=== PATIENT | male | born 1980 | race African-American/Black ===

== ENCOUNTER 2017-03-10 13:36 | Inpatient (IN) | payer OTHER ==
[~2017-03-10] VITALS: Ht 175.3 cm; Wt 80.4 kg
[2017-03-10] MEDS ORDERED: TOPA25TA10 PO (13:56)
[2017-03-10] MEDS ORDERED: NEFA200T PO (13:56)
[2017-03-10] MEDS ORDERED: HYDR25T PO (13:56)
[2017-03-10] MEDS ORDERED: AMBI5TAB PO (13:56)
[2017-03-10] MEDS ORDERED: XANA2TAB2 PO (13:56)
[2017-03-10] MEDS ORDERED: ABIL2TAB2 PO (13:56)
[2017-03-10] MEDS ORDERED: ALL10TAB27 PO (13:56)
[2017-03-10] MEDS ORDERED: PAXI10TA2 PO (13:56)
[2017-03-10] MEDS ORDERED: VIAG100T PO (13:56)
[2017-03-10] MEDS ORDERED: TEMA30CA PO (13:56)
[2017-03-10] MEDS ORDERED: WELLTAB38 PO (13:56)
[2017-03-10] MEDS ORDERED: BUPR50TA PO (13:56)
[2017-03-10 14:50] LABS: MEAN CORPUSCULAR HEMOGLOBIN 32.1 pg (27.0-33.0); MEAN CORPUSCULAR HGB CONC 34.6 g/dl (32.0-36.5); MEAN CORPUSCULAR VOLUME 92.8 fl (80.0-96.0); RED CELL DISTRIBUTION WIDTH 13.5 % (11.5-14.5); WHITE BLOOD COUNT 3.9 K/mm3 (4.0-10.0)
[2017-03-10 15:07] LABS: METHADONE URINE NEGATIVE (NEGATIVE)
[2017-03-10 15:18] LABS: ALBUMIN 4.4 GM/DL (3.2-5.2); ALBUMIN/GLOBULIN RATIO 1.52 (1.00-1.93); ALKALINE PHOSPHATASE 53 U/L (45-117); ALT/SGPT 30 U/L (12-78); ANION GAP 7 MEQ/L (8-16); AST/SGOT 31 U/L (15-37); BILIRUBIN,DIRECT 0.3 MG/DL (0.0-0.2); BILIRUBIN,TOTAL 1.3 MG/DL (0.2-1.0); BLOOD UREA NITROGEN 10 MG/DL (7-18); CALCIUM LEVEL 8.7 MG/DL (8.5-10.1); CARBON DIOXIDE LEVEL 31 MEQ/L (21-32); CHLORIDE LEVEL 106 MEQ/L (98-107); CREATININE FOR GFR 1.33 MG/DL (0.70-1.30); GLOMERULAR FILTRATION RATE > 60.0 (>60); GLUCOSE, FASTING 88 MG/DL (70-105); POTASSIUM SERUM 3.9 MEQ/L (3.5-5.1); SODIUM LEVEL 144 MEQ/L (136-145); TOTAL PROTEIN 7.3 GM/DL (6.4-8.2)
[2017-03-10] MEDS ORDERED: ALPR0.5T3 PO (16:45)
[2017-03-10] MEDS ORDERED: ABIL5TAB5 PO (16:45)
[2017-03-10] MEDS ORDERED: BUPR100T3 PO (16:45)
[2017-03-10 18:07] VITALS: BP 133/87
[2017-03-10] MEDS ORDERED: MAALOX 30 ML SUSP *UDC PO PRN (19:45)
[2017-03-10] MEDS ORDERED: MOM 30ML SUSPENSION UDC PO PRN (19:45)
[2017-03-10] MEDS ORDERED: ACETAMINOPHEN TAB 650MG DOSE (2X325MG) PO PRN (19:45)
[2017-03-10] MEDS: traZODone 50 MG TAB PO SCH (20:00)
[2017-03-10] MEDS: clonazePAM 1 MG TAB PO SCH (20:00)
[2017-03-11 06:37] VITALS: BP 139/73
[2017-03-11] MEDS: clonazePAM 1 MG TAB PO SCH ×2 (08:31→20:33)
[2017-03-11] MEDS: TOPIRAMATE (TopAMAX) 25 MG TAB PO SCH (08:31)
[2017-03-11] MEDS ORDERED: PARoxetine 12.5 MG **CR** TAB PO SCH (09:00)
--- NOTE | 2017-03-11 16:49 | HPEPDOC ---
[facility] History & Physical History and Physical DATE OF ADMISSION: Mar 10, 2017 at 15:58 LEGAL STATUS AT ADMISSION: Voluntary status CHIEF COMPLAINT: "my medication is not helping. I feel like crying a lot more than I ever did. I am not comfortable around other people. I feel very anxious. I need a break from life". 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. He has been in the service for nearly 20 years. 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 He hopes to retire soon. Half-Way is set for December 2017. However ever since his daughter left [place] and went to [place] to live with her mother the patient has been more depressed and more troubled by PTSD symptoms. He experiences anxiety, crying, hopelessness, flash backs that last a long time, & panic attacks. His daughter returned in November but his symptoms have not improved. He is prescribed Paxil CR 12.5 mg by [facility] - February. He has a therapist Hansa at [facility]. He says his therapist has suggested he seek a medical discharge and try to retire sooner from the [employer]. Pt states he would like to be considered for that along with a referral to [facility] ([facility]). He feels that [facility] will help him prepare for life outside of the . PSYCHIATRIC REVIEW OF SYSTEMS: Affective: blunted Anxiety: high Trauma: combat exposure, 3 deployments to [place] Psychosis: none unless in a flashback. Personally: readily engaged PAST PSYCHIATRIC HISTORY: Prior Psychiatric Disorder: tx for PTSD Outpatient Treatment: [facility] for medication mgt and therapy Suicidal/Self injurious: none recent or past Psychotropic Medication History: numerous medication trials. ALLERGIES: Please see below. FAMILY PSYCHIATRIC HISTORY: denies family h/o of psychiatric treatment, denies family h/o suicide. SOCIAL HISTORY: Early Relations/development: 2 older brothers A & W, Parents A & W Sibling order: youngest of 3 boys Paternal relationships: frequent communication Education: graduate Occupational: [employer] Legal: denies any arrests or incarcerations Martial: Economic: pay Supports: family, some friends Abuse/trauma: combat trauma, denies abuse. SUBSTANCE ABUSE HISTORY: no alcohol, street drugs, cannabis or cigarettes. PAST MEDICAL/SURGICAL HISTORY: 1. migraines. 2. no surgeries. VITAL SIGNS: Temperature 97.9 , pulse 54, respiratory rate 18, blood [id number] pulse oximetry 100 % on room air. MENTAL STATUS EXAMINATION: General appearance: Patient is a 36 -year old male, who is set to retire from the [employer] in December 2017. He is attired in hospital garb, bearded, appears tired. He ambulates slowly. Speech: spontaneous and thoughtful Thought processes: clear, linear, logical Thought content: appropriate Abstract reasoning and computation: good. Description of associations: good. Description of abnormal or psychotic thoughts: hears voices (1) during flashbacks, denies visions, no command hallucinations, denies suicidal intent, plan or ideation. Judgment: good Insight: good Orientation: oriented in all spheres. Recent and remote memory: intact Attention span and concentration: good Fund of knowledge: full Mood: "sad" Affect: blunted DIAGNOSES: 1. Post-traumatic stress disorder, chronic 2. Panic disorder 3. migraines ASSESSMENT: He feels his PTSD symptoms are not well controlled on his current medication which includes Paxil CR 12.5 mg, Abilify 5 mg, clonazepam 1 mg bid, trazodone 50 mg and topomax 25 mg daily for migraines.He has been on this dose of Paxil CR for over 6 months. We will increase it during his stay. His clonazepam doses will be adjusted so he gets the relief he needs during the daytime, versus dosing before bed at night. Pt reports good sleep with trazodone. He is unclear whether the addition of abilify has been helpful or not. It would have been advisable to maximize the paxil prior to adding the abilify. We will leave the abilify in place. Pt reports his PTSD symptoms became problematic in the Fall of 2015 after his daughter started to experience problems at [facility]. She was skipping classes and her grades were poor. Her mother lives in [place] and she transferred there for awhile but her problems persisted. She returned to her father's home in November and has done much better at school over the past 4 months. Pt is relieved about this but his symptoms did not decrease in response to the reduction in stress. He is now wanting to be referred to the [facility] [place] and await a medical chcf. He has filed the paperwork for a regular chcf and that was planned for December 2017. Pt states he has lost all interest in things he previously enjoyed, like going to the gym and working out. He used to like to read and does not do that anymore. He is anxious and panicky in a restaurant. He does not enjoy being in the company of others. He feels anxious and panicky. His concentration and sleep are good. He reports feeling hopeless much of the time. He has frequent crying spells and sometimes hears voices when he is crying. He reports his last panic attack was 2 weeks ago at [employer]. His appetite is poor and he has lost 15 lbs in 6 mos. He has decreased energy. He forces himself to go to work. Pt denies h/o substance abuse. No detox or rehab treatment,no DUI. Pt drinks occasionally on the weekend but does not become intoxicated. He does not use cigarettes or street drugs. PROBLEM LIST: 1. Anxiety 2. altered thoughts and perceptions 3. poor coping INITIAL TREATMENT PLAN: 1. Patient was admitted on a voluntary status 2. Complete history was obtained. 3. With patients permission, family will be contacted and database will be expanded. 4. Patients medication regimen will be reviewed and changed accordingly. 5. Patient will be provided with protected environment. 6. Patient will be treated with individual, group, and milieu therapies. 7. Patient will receive supportive psych-education. 8. Discharge planning will commence immediately. 9. Outpatient follow-up treatment will be strongly recommended. 10. The initial treatment plan will focus initially on: * Depression. * Anxiety * improved coping skills. ESTIMATED LENGTH OF STAY: 7 DAYS. TIME SPENT COUNSELING AND COORDINATING INITIAL CARE: 60 minutes. Medications Scheduled (Bupropion HCl Sr) 100 Mg Tab 100 MG PO DAILY (Reported) Alprazolam (Alprazolam) 0.5 Mg Tab 0.5 MG PO BID (Reported) Aripiprazole (Abilify) 5 Mg Tab 5 MG PO DAILY (Reported) Paroxetine Hydrochloride (Paxil) 10 Mg Tab 10 MG PO DAILY (Reported) Temazepam (Temazepam) 30 Mg Cap 30 MG PO QHS (Reported) Topiramate (Topamax) 25 Mg Tab 25 MG PO BID (Reported) Scheduled PRN Cetirizine HCl (All Day Allergy) 10 Mg Tab 10 MG PO DAILY PRN PRN ALLERGIES ( Reported) Sildenafil Citrate (Viagra) 100 Mg Tab 100 MG PO MTHLY PRN PRN ERECTILE DYSFUNCTION (Reported) Allergies Coded Allergies: Penicillins (Verified Allergy, Unknown, 03/10/17) Lindy Leblanc Mar 11, 2017 16:49
[2017-03-11 18:00] VITALS: BP 121/60
[2017-03-11] MEDS: traZODone 50 MG TAB PO SCH (20:33)
--- NOTE | 2017-03-11 23:29 | HPE ---
DATE OF ADMISSION: 03/10/2017 Please refer to psychiatric history and evaluation for further details on this admission. This examination and history is intended for medical issues, which may need treatment, followup, or consult on this 36-year-old male. ALLERGIES: PENICILLIN. PRIMARY CARE PROVIDER: Jess Banks. 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 Smokes: None. Recreational drug use: None detected. PAST MEDICAL HISTORY: 1. Post traumatic stress disorder (PTSD). 2. Migraines. PAST SURGICAL HISTORY: None. HOME MEDICATIONS: - alprazolam 0.5 mg by mouth twice a day - Abilify 5 mg by mouth daily - bupropion 100 mg by mouth daily - cetirizine 10 mg by mouth daily as needed for allergies - Paxil 10 mg by mouth daily - temazepam 30 mg by mouth at bedtime - Topamax 25 mg by mouth twice a day LABORATORY STUDIES: WBC 3.9, hemoglobin 15.7, hematocrit 45.3, platelets 204. Electrolytes were normal. BUN was 10, creatinine 1.33. Urine was positive for benzodiazepines. REVIEW OF SYSTEMS: A 10-systems review was done. Patient's only complaint was a sore lower lip where he had gotten it hit on boxing practice. Otherwise, review of systems was unremarkable. PHYSICAL EXAMINATION: A 36-year-old cooperative male in no acute distress. Height 69 inches, weight 78.8 kg, body mass index 28.7, blood pressure 133/87, pulse 56, respirations 16, temperature 97.8. Patient is alert and oriented times three. Pupils equal and reactive to light. Extraocular movements (EOMs) intact. Corneae and sclerae clear. Conjunctivae are normal. No facial asymmetry. Pharynx, tongue, and gums pink and moist. Tongue is midline. Middle of left side lower eric slightly open. No redness, swelling, or drainage. Neck supple without lymphadenopathy. No thyromegaly. No goiter. Carotids 2+ without bruits. Chest clear to auscultation without wheeze or retraction. Heart is regular. Abdomen benign. Bowel sounds positive. Genitourinary/rectal not done. Extremities show equal strength. Full range of motion. No cyanosis, clubbing, or edema. Gait steady. Peripheral pulses equal and palpable bilaterally. Skin is warm and dry. IMPRESSION AND PLAN: Psychiatric plan per psychiatry. Monitor lip for healing. No acute medical issues. History of migraines. Continue Topamax.
[2017-03-12 06:20] VITALS: BP 131/73
[2017-03-12] MEDS: TOPIRAMATE (TopAMAX) 25 MG TAB PO SCH (08:29)
[2017-03-12] MEDS ORDERED: clonazePAM 1 MG TAB PO SCH ×3 (09:00→13:00)
[2017-03-12] MEDS: PARoxetine 12.5 MG **CR** TAB PO SCH (09:38)
--- NOTE | 2017-03-12 12:58 | IPNPDOC ---
[facility] Progress Note Progress Note DATE OF SERVICE: 03/12/17 HISTORY: Day 3 of admission. VITAL SIGNS: See below. NEW TEST RESULTS: none CURRENT MEDICATIONS: See below. MENTAL STATUS EXAMINATION: Patient is a 36-year old male, who is dx with PTSD and currently having an exacerbation of symptoms.He is dressed in hospital attire. Speech: Is fluent, spontaneous Language skills are good. Thought processes : clear, logical Thought content: chcf from the , daughter Abstract reasoning, and computation: adequate. Description of associations: good. Description of abnormal or psychotic thoughts: none, no psychotic symptoms illicited. Not suicidal but would not care if he . No plans to harm self. Judgment: good Insight: good, . Orientation:well oriented in all spheres Recent and remote memory: grossly intact Attention span and concentration: adequate Fund of knowledge: full Mood: anxious. Affect: congruent DIAGNOSES: 1. PTSD, chronic 2. Panic disorder ASSESSMENT:Pt is adjusting to the unit and its routines. Pt reports sleeping well last night. Pt is cooperative to requests and participates in decisions regarding medication and discharge planning. Today he met with lead technical writer and the inventory planner who had information from [employer]. The command at the [facility] wants him to stop taking benzodiazepines (clonazepam) and to stop treatment at [facility] and begin treatment at the [facility] on the [facility]. Pt is agreeable to all requests. Pt made known his desire to be referred to [facility] and to seek medical chcf. merchandise planner will make his requests known and continue to engage with all concerned parties. Determination may not be known for some time. In the afternoon [employer] informed staff that since Mr. Samaniego was receiving care with a private agency, they have no documentation of his medical/ psychiatric condition and are unable to offer him a medical chcf. They agree to consider this should Mr. Samaniego sign an JANNETTE allowing [facility] to share his records with the [employer]. Only after they have these records will they conduct their own psychiatric evaluation and from there decide if he is a candidate for [facility] and/or medical boarding. This information will be shared with Mr. Samaniego. He will also be required to present to [facility] at the [facility] upon discharge for a safety check. Mr. Samaniego has a 16 yo daughter who would like to visit. Since she is a minor we have to wait 4 days from admission to address this. If the treatment team agrees to visitation lead technical writer will prepare an order and they are to meet in the quiet group room only. she is not to wander about the unit and visitation will be limited to several times a week, not daily visits. This will be explained to Mr. Samaniego. MANAGEMENT PLAN: Pt took first dose of paxil cr at 25 mg this a.m. So far he has tolerated this. We discussed tapering the clonazepam starting tomorrow. He will receive half the dose he is currently taking. It will still be administered twice a day. Buspar will be added at 10 mg TID. It will take 2 weeks to reach a therapeutic level. It is being used as a substitute to the clonazepam. Medication education provided and pt is aware this is a much different drug than clonazepam. With the increase in Paxil and the addition of the buspar we are expecting that his anxiety will remain controlled. Pt will also pursue other self-help therapies for self calming. TIME SPENT: 60 minutes. Vital Signs Vital Signs Date Time Temp Pulse Resp B/P Pulse Ox O2 Delivery O2 Flow Rate FiO2 03/12/17 06:20 97.8 61 16 131/73 Room Air 03/10/17 18:07 100 Current Medications Current Medications Acetaminophen (Tylenol Tab) 650 mg Q6HP PRN PO HEADACHE or DISCOMFORT; Start at 19:45; Stop 04/09/17 at 19:44 Al Hydrox/Mg Hydrox/Simethicone (Mylanta) 30 ml Q4HP PRN PO HEARTBURN/ INDIGESTION; Start 03/10/17 at 19:45; Stop 04/09/17 at 19:44 Aripiprazole (AbiLIFY) 5 mg DAILY PO Last administered on 03/12/17 08:29; Start 03/11/17 at 09:00; Stop 04/10/17 at 08:59 Clonazepam (KlonoPIN) 1 mg ASDIRECTED PO ; Start 03/12/17 at 09:00; Stop at 13:00; Status UNV Clonazepam (KlonoPIN) 1 mg BID PO Last administered on 03/11/17 20:33; Start 03/10/17 at 21:00; Stop 03/12/17 at 08:16; Status DC Clonazepam (KlonoPIN) 1 mg BID@09,13 PO Last administered on 03/12/17 09:39; Start 03/12/17 at 09:00; Stop 03/19/17 at 08:59 Home Med (Med Rec Complete!) ASDIRECTED XX ; Start 03/10/17 at 17:00; Stop at 17:00; Status DC Magnesium Hydroxide (Milk Of Magnesia) 30 ml DAILYPRN PRN PO CONSTIPATION; Start 03/10/17 at 19:45; Stop 04/09/17 at 19:44 Paroxetine HCl (PAXil CR) 12.5 mg DAILY PO Last administered on 03/11/17 08:31 ; Start 03/11/17 at 09:00; Stop 03/11/17 at 16:52; Status DC Paroxetine HCl (PAXil CR) 25 mg DAILY PO Last administered on 03/12/17 09:38; Start 03/12/17 at 09:00; Stop 04/11/17 at 08:59 Topiramate (TopAMAX) 25 mg DAILY PO Last administered on 03/12/17 08:29; Start 03/11/17 at 09:00; Stop 04/10/17 at 08:59 Trazodone HCl (Desyrel) 50 mg QPM PO Last administered on 03/11/17 20:33; Start 03/10/17 at 21:00; Stop 04/09/17 at 20:59 Allergies Coded Allergies: Penicillins (Verified Allergy, Unknown, 03/10/17) Lindy Leblanc Mar 12, 2017 12:58
[2017-03-12 18:00] VITALS: BP 132/67
[2017-03-12] MEDS: traZODone 50 MG TAB PO SCH (20:35)
[2017-03-12] MEDS: CETIRIZINE (ZyrTEC) 10 MG TAB PO PRN (21:30)
[2017-03-13 06:17] VITALS: BP 164/75
[2017-03-13] MEDS: TOPIRAMATE (TopAMAX) 25 MG TAB PO SCH (08:04)
[2017-03-13] MEDS: PARoxetine 12.5 MG **CR** TAB PO SCH (08:04)
[2017-03-13] MEDS: clonazePAM 0.5 MG TAB PO SCH ×2 (08:04→12:50)
[2017-03-13] MEDS: busPIRone 10 MG TAB PO SCH ×3 (08:04→20:25)
--- NOTE | 2017-03-13 11:35 | IPNPDOC ---
[facility] Progress Note Progress Note DATE OF SERVICE: 03/13/17 HISTORY: Day 4 of admission VITAL SIGNS: See below. NEW TEST RESULTS: na CURRENT MEDICATIONS: See below. MENTAL STATUS EXAMINATION: Patient is a 36 year old male, who is dx with PTSD, experiencing vague SI. Speech: Is clear, spontaneous, even rate and rhythm. Language skills are intact Thought processe: clear, goal directed Thought content: residential, daughter, Abstract reasoning, and computation: adequate Description of associations: good Description of abnormal or psychotic thoughts: denies hallucinations, delusions , denies plan or intent to harm self or others. Judgment: good Insight: good Orientation: oriented in all spheres Recent and remote memory: grossly intact Attention span and concentration: adequate Fund of knowledge: full Mood: depressed. Affect: congruent DIAGNOSES: 1. PTSD 2. Panic disorder ASSESSMENT:Pt is cooperative on the unit and participates in discharge planning. he is adhering to the medication regime which include tapering off clonazepam. He denies any difficulty with the medication other than to report it all makes him tired. Will schedule his SSRI for hs now that he has made us aware of this. MANAGEMENT PLAN: Change Paxil CR 25 mg to hs TIME SPENT: 30 minutes. Vital Signs Vital Signs Date Time Temp Pulse Resp B/P Pulse Ox O2 Delivery O2 Flow Rate FiO2 03/13/17 06:17 99.0 72 18 164/75 03/12/17 06:20 Room Air 03/10/17 18:07 100 Current Medications Current Medications Acetaminophen (Tylenol Tab) 650 mg Q6HP PRN PO HEADACHE or DISCOMFORT; Start at 19:45; Stop 04/09/17 at 19:44 Al Hydrox/Mg Hydrox/Simethicone (Mylanta) 30 ml Q4HP PRN PO HEARTBURN/ INDIGESTION; Start 03/10/17 at 19:45; Stop 04/09/17 at 19:44 Aripiprazole (AbiLIFY) 5 mg DAILY PO Last administered on 03/13/17 08:04; Start 03/11/17 at 09:00; Stop 04/10/17 at 08:59 Buspirone HCl (Buspar) 10 mg TID PO Last administered on 03/13/17 08:04; Start 03/13/17 at 09:00; Stop 04/12/17 at 08:59 Cetirizine HCl (ZyrTEC) 10 mg DAILY PRN PO ALLERGIES Last administered on 21:30; Start 03/12/17 at 21:00; Stop 04/11/17 at 20:59 Clonazepam (KlonoPIN) 0.5 mg BID@,13 PO Last administered on 03/13/17 08:04 ; Start 03/13/17 at 09:00; Stop 03/20/17 at 08:59 Clonazepam (KlonoPIN) 1 mg ASDIRECTED PO ; Start 03/12/17 at 09:00; Stop at 13:00; Status UNV Clonazepam (KlonoPIN) 1 mg BID PO Last administered on 03/11/17 20:33; Start 03/10/17 at 21:00; Stop 03/12/17 at 08:16; Status DC Clonazepam (KlonoPIN) 1 mg BID@, PO Last administered on 03/12/17 09:39; Start 03/12/17 at 09:00; Stop 03/12/17 at 12:46; Status DC Clonazepam (KlonoPIN) 1 mg BID@, PO Last administered on 03/12/17 13:11; Start 03/12/17 at 13:00; Stop 03/12/17 at 14:00; Status DC Home Med (Med Rec Complete!) ASDIRECTED XX ; Start 03/10/17 at 17:00; Stop at 17:00; Status DC Magnesium Hydroxide (Milk Of Magnesia) 30 ml DAILYPRN PRN PO CONSTIPATION; Start 03/10/17 at 19:45; Stop 04/09/17 at 19:44 Paroxetine HCl (PAXil CR) 12.5 mg DAILY PO Last administered on 03/11/17 08:31 ; Start 03/11/17 at 09:00; Stop 03/11/17 at 16:52; Status DC Paroxetine HCl (PAXil CR) 25 mg DAILY PO Last administered on 03/13/17 08:04; Start 03/12/17 at 09:00; Stop 04/11/17 at 08:59 Topiramate (TopAMAX) 25 mg DAILY PO Last administered on 03/13/17 08:04; Start 03/11/17 at 09:00; Stop 04/10/17 at 08:59 Trazodone HCl (Desyrel) 50 mg QPM PO Last administered on 03/12/17t 20:35; Start 03/10/17 at 21:00; Stop 04/09/17 at 20:59 Allergies Coded Allergies: Penicillins (Verified Allergy, Unknown, 03/10/17) Lindy Leblanc Mar 13, 2017 11:35
[2017-03-13 18:00] VITALS: BP 141/87
[2017-03-13] MEDS: traZODone 50 MG TAB PO SCH (20:25)
[2017-03-14 07:08] VITALS: BP 142/80
[2017-03-14] MEDS: busPIRone 10 MG TAB PO SCH ×3 (07:45→20:41)
[2017-03-14] MEDS: TOPIRAMATE (TopAMAX) 25 MG TAB PO SCH (07:45)
[2017-03-14] MEDS: clonazePAM 0.5 MG TAB PO SCH ×2 (07:45→12:19)
--- NOTE | 2017-03-14 14:44 | IPNPDOC ---
[facility] Progress Note Progress Note DATE OF SERVICE: 03/14/17 HISTORY: Day 5 of admission VITAL SIGNS: See below. NEW TEST RESULTS: na CURRENT MEDICATIONS: See below. MENTAL STATUS EXAMINATION: Patient is a 36-year old male, who is dx with Post-traumatic stress disorder. He is interviewed in his room, laying in bed in hospital garb. He has not been observed out of the room today. He is pleasant nad coopertive. Speech: Is fluent Language skills are good. Thought processes : goal directed Thought content: appropriate Abstract reasoning, and computation: fair. Description of associations: good Description of abnormal or psychotic thoughts: denies SI, denies HI, denies perceptual disturbance Judgment: good Insight: good Orientation: oriented x 3 Recent and remote memory: intact Attention span and concentration: adequate Fund of knowledge: full Mood: "that medication makes me tired". Affect: congruent. DIAGNOSES: 1. PTSD, chronic 2. Panic disorder ASSESSMENT Mr. Samaniego is tolerating med changes despite the fatigue induced by buspirone. Hopefully he will become used to it so he is more alert and active. Discussed different dosing strategies with him. He elects to keep things as they are for now. Sleep is good, appetite is good. Very seclusive and encouraged him to socialize and attend groups. He states he will when he is less tired. Pt has been in contact with his daughter who will visit him over the weekend. MANAGEMENT PLAN: Taking meds as ordered. He is aware that discharge is possible Friday if [facility] meeting goes well. [place] [facility] [place] TIME SPENT: 15 minutes. Vital Signs Vital Signs Date Time Temp Pulse Resp B/P Pulse Ox O2 Delivery O2 Flow Rate FiO2 03/14/17 07:08 98.8 63 16 142/80 03/12/17 06:20 Room Air 03/10/17 18:07 100 Current Medications Current Medications Acetaminophen (Tylenol Tab) 650 mg Q6HP PRN PO HEADACHE or DISCOMFORT; Start at 19:45; Stop 04/09/17 at 19:44 Al Hydrox/Mg Hydrox/Simethicone (Mylanta) 30 ml Q4HP PRN PO HEARTBURN/ INDIGESTION; Start 03/10/17 at 19:45; Stop 04/09/17 at 19:44 Aripiprazole (AbiLIFY) 5 mg DAILY PO Last administered on 03/14/17 07:45; Start 03/11/17 at 09:00; Stop 04/10/17 at 08:59 Buspirone HCl (Buspar) 10 mg TID PO Last administered on 03/14/17 07:45; Start 03/13/17 at 09:00; Stop 04/12/17 at 08:59 Cetirizine HCl (ZyrTEC) 10 mg DAILY PRN PO ALLERGIES Last administered on 21:30; Start 03/12/17 at 21:00; Stop 04/11/17 at 20:59 Clonazepam (KlonoPIN) 0.5 mg BID@ PO Last administered on 03/14/17 12:19 ; Start 03/13/17 at 09:00; Stop 03/20/17 at 08:59 Clonazepam (KlonoPIN) 1 mg ASDIRECTED PO ; Start 03/12/17 at 09:00; Stop at 13:00; Status UNV Clonazepam (KlonoPIN) 1 mg BID PO Last administered on 03/11/17 20:33; Start 03/10/17 at 21:00; Stop 03/12/17 at 08:16; Status DC Clonazepam (KlonoPIN) 1 mg BID@ PO Last administered on 03/12/17 09:39; Start 03/12/17 at 09:00; Stop 03/12/17 at 12:46; Status DC Clonazepam (KlonoPIN) 1 mg BID@ PO Last administered on 03/12/17 13:11; Start 03/12/17 at 13:00; Stop 03/12/17 at 14:00; Status DC Home Med (Med Rec Complete!) ASDIRECTED XX ; Start 03/10/17 at 17:00; Stop at 17:00; Status DC Magnesium Hydroxide (Milk Of Magnesia) 30 ml DAILYPRN PRN PO CONSTIPATION; Start 03/10/17 at 19:45; Stop 04/09/17 at 19:44 Paroxetine HCl (PAXil CR) 12.5 mg DAILY PO Last administered on 03/11/17 08:31 ; Start 03/11/17 at 09:00; Stop 03/11/17 at 16:52; Status DC Paroxetine HCl (PAXil CR) 25 mg DAILY PO Last administered on 03/13/17 08:04; Start 03/12/17 at 09:00; Stop 03/13/17 at 11:37; Status DC Paroxetine HCl (PAXil CR) 25 mg QHS PO ; Start 03/14/17 at 21:00; Stop 04/13/17 at 20:59 Sodium Chloride (B[place] Nasal [place]) 2 spray Q2HP PRN NA CONGESTION; Start 03/14 at 08:15; Stop 04/13/17 at 08:14 Topiramate (TopAMAX) 25 mg DAILY PO Last administered on 03/14/17 07:45; Start 03/11/17 at 09:00; Stop 04/10/17 at 08:59 Trazodone HCl (Desyrel) 50 mg QPM PO Last administered on 03/13/17 20:25; Start 03/10/17 at 21:00; Stop 04/09/17 at 20:59 Allergies Coded Allergies: Penicillins (Verified Allergy, Unknown, 03/10/17) Lindy Leblanc Mar 14, 2017 14:44
[2017-03-14 18:00] VITALS: BP 72/16
[2017-03-14] MEDS: SODIUM CHLORIDE NASAL 0.65% SPRAY BTL (OCEAN) PRN ×2 (18:16→20:41)
[2017-03-14] MEDS: PARoxetine 12.5 MG **CR** TAB PO SCH (20:41)
[2017-03-14] MEDS: traZODone 50 MG TAB PO SCH (20:41)
[2017-03-15 06:30] VITALS: BP 122/88
[2017-03-15] MEDS: SODIUM CHLORIDE NASAL 0.65% SPRAY BTL (OCEAN) PRN ×2 (08:08→13:03)
[2017-03-15] MEDS: clonazePAM 0.5 MG TAB PO SCH ×2 (08:09→12:59)
[2017-03-15] MEDS: TOPIRAMATE (TopAMAX) 25 MG TAB PO SCH (08:09)
[2017-03-15] MEDS: busPIRone 10 MG TAB PO SCH ×3 (08:09→20:39)
[2017-03-15 18:00] VITALS: BP 120/70
[2017-03-15] MEDS: PARoxetine 12.5 MG **CR** TAB PO SCH (20:39)
[2017-03-15] MEDS: traZODone 50 MG TAB PO SCH (20:39)
[2017-03-16 06:38] VITALS: BP 122/88
[2017-03-16] MEDS: busPIRone 10 MG TAB PO SCH ×3 (08:07→20:38)
[2017-03-16] MEDS: TOPIRAMATE (TopAMAX) 25 MG TAB PO SCH (08:07)
[2017-03-16] MEDS: CETIRIZINE (ZyrTEC) 10 MG TAB PO PRN (09:18)
[2017-03-16] MEDS: SODIUM CHLORIDE NASAL 0.65% SPRAY BTL (OCEAN) PRN ×2 (09:19→20:38)
[2017-03-16] MEDS: clonazePAM 0.5 MG TAB PO SCH (11:23)
[2017-03-16 18:00] VITALS: BP 136/72
[2017-03-16] MEDS: traZODone 50 MG TAB PO SCH (20:38)
[2017-03-16] MEDS: PARoxetine 12.5 MG **CR** TAB PO SCH (20:38)
[2017-03-17 06:21] VITALS: BP 123/79
[2017-03-17] MEDS: TOPIRAMATE (TopAMAX) 25 MG TAB PO SCH (08:03)
[2017-03-17] MEDS: busPIRone 10 MG TAB PO SCH (08:03)
[2017-03-17] MEDS: SODIUM CHLORIDE NASAL 0.65% SPRAY BTL (OCEAN) PRN ×2 (08:06→12:48)
[2017-03-17] MEDS: CETIRIZINE (ZyrTEC) 10 MG TAB PO PRN (08:06)
[2017-03-17] MEDS: clonazePAM 0.5 MG TAB PO SCH (11:09)
[2017-03-17] MEDS ORDERED: clonazePAM 0.5 MG TAB PO ONE ×3 (11:15→11:30)
[2017-03-17] MEDS ORDERED: BUSP10TA PO (11:21)
[2017-03-17] MEDS ORDERED: KLON0.5T PO (11:22)
[2017-03-17] MEDS ORDERED: PAXI25TA13 PO (11:24)
[2017-03-17] MEDS ORDERED: ABIL5TAB5 PO (11:25)
--- NOTE | 2017-03-17 11:43 | DS.PDOC ---
[facility] Discharge Summary Discharge Summary DATE OF ADMISSION: Mar 10, 2017 at 15:58 DATE OF DISCHARGE: March 17, 2017 DISCHARGE DIAGNOSES: 1. Post-traumatic Stress Disorder, Chronic 2. Panic disorder REASON FOR ADMISSION: pt did not want to live anymore CONSULTANTS INVOLVED: medical, lab, psychiatry TREATMENT AND PROGRESS ON THE UNIT : Pt was amenable to medication changes during the admission. His Paxil CR was increased for depression from 12.5 mg daily to 25 mg daily. He tolerated the increase and feels it has been of benefit however full benefit will not be noticed until 4-6 weeks after change made. When pt was made aware he would need to seek outpatient services [facility] [place] [facility] and that he would have to stop regular dosing of clonazepam, he agreed to a taper. He has done well. Buspar was added, 10 mg tid. The medication makes him feel tired and he is adjusting to it and it is getting better for him. He finds the buspar helpful, but again it will take an additional week before the med reaches a therapeutic value in his body. He will be discharged with one daily prn dose of clonazepam due to his panic disorder and PTSD. There are no refills allowed on this medication. Pt feels he needs temazepam for sleep. He has this medication at home and a new script will not be written for him. He has been taking trazodone in the hospital and sleeping well but he prefers the trazodone. It was suggested he discuss temazepam with the staff at the [facility] [place].Abilify 5 mg was reordered.No other med changes were deemed necessary at this time. We did work successfully at reducing his benzo intake from 3 mg of clonazepam a day to 1 dose prn of 0.5 mg. HOSPITAL COURSE: Pleasant and cooperative soldier. Was not very sociable on the unit as he was going through med changes that made him tired. Is due to retire in December. Would like to be transitioned to [facility] and receive a medical long term in addition to his regular 20 year long term. He was informed that to do this he would need to terminate services with [facility] and begin treatment through the [facility]. He is agreeable to this. He also agrees to sign an JANNETTE so his records may be obtained from his former therapist and provider. DISCHARGE ASSESSMENT: Pt is discharged less depressed but full effectiveness of interventions will take 3-5 additional weeks to evaluate. His paxil cr was increased to help with depression and anxiety. 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 This has raised his anxiety significantly. He is having panic attacks more frequently and has a difficult time being in crowds. At the urging of the [employer], his controlled substances have been reduced. He was taking 3 mg of klonopin daily. Buspar 10 mg tid has been ordered in place of this. He did report fatigue when this medication was added. He was tapered from 3 mg of clonazepam to 1.5 mg to 1 mg and today he received only 0.5 mg of clonazepam. He will be discharged with klonopin 0.5mg daily prn 1 dose if necessary. He was taking temazepam for sleep but on the unit he was prescribed trazodone 50 mg for insomnia. He tolerated the med well but requests to be discharged on temazepam instead of trazodone. No sleep meds were ordered for discharge as he has temazepam at home. MENTAL STATUS EXAMINATION ON DISCHARGE: Patient is a 36-year old male, who is being treated for exacerbation of PTSD. Pt is alert and oriented, wearing civilian clothes and casually dressed. He wears a nylon cap on his head, Eye contact is good. Speech is clear, fluent, even r/r Language skills are good Thought processes : linear and goal directed. Thought content: appropriate. Abstract reasoning, and computation: adequate Description of associations: adequate. Description of abnormal or psychotic thoughts: no SI, no psychotic symptoms Judgment: good Insight: good Orientation to oriented in all spheres Recent and remote memory: intact Attention span and concentration: adequate Fund of knowledge: Full Mood: euthymic Affect: anxious MEDICATIONS ON DISCHARGE: - buspar for anxiety - paxil cr for depression/anxiety - clonazepam for for anxiety prn -Abilify for mood PLAN/FOLLOWUP ARRANGEMENTS: Pt agrees to follow up with [facility] upon discharge. The amount of time spent in the coordination of care for this patient was approximately 60 minutes. Vital Signs/I&Os Vital Signs Date Time Temp Pulse Resp B/P Pulse Ox O2 Delivery O2 Flow Rate FiO2 03/17/17 06:21 98.0 66 14 123/79 03/12/17 06:20 Room Air Medications Scheduled Aripiprazole (Abilify) 5 Mg Tab #7 5 MG PO DAILY MOOD Buspirone HCl (Buspirone HCl) 10 Mg Tab #7 10 MG PO TID ANXIETY Temazepam (Temazepam) 30 Mg Cap 30 MG PO QHS ANXIETY (Reported) Topiramate (Topamax) 25 Mg Tab 25 MG PO BID ANTI-SEIZURE (Reported) Scheduled PRN Cetirizine HCl (All Day Allergy) 10 Mg Tab 10 MG PO DAILY PRN PRN ALLERGIES ( Reported) Clonazepam (Clonazepam) 0.5 Mg Tab #7 0.5 MG PO DAILYPRN PRN PRN ANXIETY Paroxetine Hydrochloride (Paxil Cr) 25 Mg Tab #7 25 MG PO daily at bedtime PRN PRN MOOD Sildenafil Citrate (Viagra) 100 Mg Tab 100 MG PO MTHLY PRN PRN ERECTILE DYSFUNCTION (Reported) Allergies Coded Allergies: Penicillins (Verified Allergy, Unknown, 03/10/17) Lindy Leblanc Mar 17, 2017 11:42 Lindy Leblanc Mar 17, 2017 11:42
[2017-03-17] MEDS ORDERED: CLON0.5T PO (12:02)
[2017-03-17] MEDS ORDERED: busPIRone 10 MG TAB PO SCH (16:00)
[2017-03-17] MEDS ORDERED: PARoxetine 25 MG CR TAB (PAXIL CR) PO SCH (21:00)
== END 2017-03-17 13:15 | disposition home or self-care (01) | DRG 882 ==
LOC: M ED 15:57 → M ED INP 15:58 → M PSY 18:00
PROVIDERS: ADMIT Psychiatry & Neurology Psychiatry; ATTEND Psychiatry & Neurology Child & Adolescent Psychiatry
DX: F43.12 Post-traumatic stress disorder, chronic (principal); F41.0 Panic disorder [episodic paroxysmal anxiety]; G43.909 Migraine, unspecified, not intractable, without status migrainosus; Z79.899 Other long term (current) drug therapy; Z88.0 Allergy status to penicillin

== ENCOUNTER → 2017-11-27 | Outpatient (REF) | payer OTHER ==
[2017-11-27 18:41] LABS: BASO # 0.1 10^3/uL (0.0-0.2); BASO % 1.3 % (0.0-1.0); EOS # 0.4 10^3/uL (0.0-0.50); EOS % 9.7 % (0.0-3.0); HEMATOCRIT 43.9 % (42.0-52.0); HEMOGLOBIN 15.3 g/dl (14.0-18.0); IMMATURE GRANULOCYTE % 0.9 % (0-0); LYMPH # 1.1 10^3/uL (1.5-4.5); LYMPH % 23.5 % (24.0-44.0); MEAN CORPUSCULAR HEMOGLOBIN 31.2 pg (27.0-33.0); MEAN CORPUSCULAR HGB CONC 34.9 g/dl (32.0-36.5); MEAN CORPUSCULAR VOLUME 89.4 fl (80.0-96.0); MONO # 0.4 10^3/uL (0.0-0.8); MONO % 8.4 % (0.0-5.0); NEUTROPHILS # 2.5 10^3/uL (1.8-7.7); NEUTROPHILS % 56.2 % (36.0-66.0); PLATELET COUNT, AUTOMATED 212 10^3/uL (150-450); RED BLOOD COUNT 4.91 10^6/uL (4.30-6.10); RED CELL DISTRIBUTION WIDTH 12.9 % (11.5-14.5); WHITE BLOOD COUNT 4.5 10^3/uL (4.0-10.0)
[2017-11-27 18:59] LABS: ESTIMATED AVERAGE GLUCOSE 105 MG/DL (60-110); HEMOGLOBIN A1c 5.3 %
[2017-11-27 19:08] LABS: ALBUMIN 4.2 GM/DL (3.2-5.2); ALBUMIN/GLOBULIN RATIO 1.45 (1.00-1.93); ALKALINE PHOSPHATASE 47 U/L (45-117); ALT/SGPT 41 U/L (12-78); ANION GAP 8 MEQ/L (8-16); AST/SGOT 29 U/L (7-37); BILIRUBIN,TOTAL 1.1 MG/DL (0.2-1.0); BLOOD UREA NITROGEN 13 MG/DL (7-18); CALCIUM LEVEL 8.9 MG/DL (8.5-10.1); CARBON DIOXIDE LEVEL 26 MEQ/L (21-32); CHLORIDE LEVEL 109 MEQ/L (98-107); CREATININE FOR GFR 1.18 MG/DL (0.70-1.30); GLOMERULAR FILTRATION RATE > 60.0 (>60); GLUCOSE, FASTING 99 MG/DL (70-105); POTASSIUM SERUM 4.1 MEQ/L (3.5-5.1); RHEUMATOID FACTOR QUANT < 10.0 IU/ML (0-15.0); SODIUM LEVEL 143 MEQ/L (136-145); TOTAL PROTEIN 7.1 GM/DL (6.4-8.2)
[2017-11-27 19:17] LABS: ERYTHROCYTE SEDIMENTATION RATE 2 mm/hr (0-15)
[2017-11-27 20:47] LABS: VITAMIN B12 LEVEL 604 PG/ML
[2017-11-27 20:48] LABS: FOLATE 10.9 NG/ML
[2017-12-01 13:19] LABS: ALBUMIN % 64.5 % (55.8-66.1)
[2017-12-01 13:20] LABS: ALBUMIN 4.58 GM/DL (3.29-5.55); ALPHA-1-GLOBULINS 0.28 GM/DL (0.17-0.41); ALPHA-2-GLOBULINS 0.45 GM/DL (0.42-0.99); ALPHA-2-GLOBULINS % 6.4 % (7.1-11.8); BETA-1-GLOBULINS % 5.7 % (4.7-7.2); BETA-2-GLOBULINS 0.33 GM/DL (0.19-0.55); BETA-2-GLOBULINS % 4.6 % (3.2-6.5); GAMMA GLOBULIN % 14.9 % (11.1-18.8); GAMMA GLOBULINS 1.03 GM/DL (0.65-1.58)
[2017-12-02 09:35] LABS: DRVV SCREEN 38.1 SEC
[2017-12-02 09:37] LABS: PTT LUPUS TYPE ANTICOAG SCREEN 0.9 (0-1.2)
[2017-12-04 08:07] LABS: ANCA-ATYPICAL <1:20 titer (Neg:<1:20); ANTI DOUBLE STRAND-DNA AB <1 IU/mL (0-9); ANTINUCLEAR ANTIBODIES DIRECT Negative (Negative); CYTOPLASMIC NEUTROP AB ANCA-C <1:20 titer (Neg:<1:20); PERINUCLEAR AB ANCA-P <1:20 titer (Neg:<1:20); SJOGREN'S ANTI SS-A <0.2 AI (0.0-0.9); SJOGREN'S ANTI SS-B <0.2 AI (0.0-0.9); VITAMIN B1 LEVEL WHOLE BLOOD 153.1 nmol/L (66.5-200.0); VITAMIN B6,PYRIDOXAL PHOSPHATE 20.6 ug/L (5.3-46.7)
== END ==
LOC: M LABNEURO 14:14
DX: G62.9 Polyneuropathy, unspecified (principal)

== ENCOUNTER → 2018-07-17 | Outpatient (CLI) | payer OTHER | LOC: M CARPUL 11:12 | DX: I51.7 Cardiomegaly (principal) | CPT/HCPCS: 93306 ==